=== PATIENT | male | born 1950 | race Caucasian/White ===

== ENCOUNTER 2022-01-26 11:14 | Day surgery (SDC) | payer MEDICARE, SELFPAY ==
--- NOTE | 2022-01-26 | PATH_ITS ---
[facility] Accession Number: [id number] . 01 Material submitted: . colon - TRANSVERSE COLON . 01 Diagnosis: Transverse Colon Polyp, Biopsy: Tubular adenoma. [facility] 02/01/2022 1548 Local . 01 Electronically signed: . Eboni Rivas MD, Pathologist NPI- [id number] . 01 Gross description: . TRANSVERSE COLON: Received in formalin are 2 fragment(s) of garrett, soft tissue measuring 0.3 x 0.2 x 0.1 cm to 0.2 x 0.2 x 0.1 cm submitted entirely in 1 cassette(s) /CPE 01/28/2022 0725 Local . 01 Pathologist provided ICD-10: D12.3 . 01 CPT . 809987 Specimen Comment: A courtesy copy of this report has been sent to [phone] Performed at: 01 [facility] [address] [place] [address], [place], [place] [id number] MD Mil Posada MD Phone: [phone]
[2022-01-26 11:54] VITALS: BP 141/94; PULSE 73; RESP 16; TEMP 36.9; O2SAT 97; BMI 24.3
--- NOTE | 2022-01-26 11:59 | P.HP_ITS ---
History of Present Illness History of Present Illness Date Patient Seen: 01/26/22 Time Patient Seen: 11:59 Chief complaint: Colonoscopy Narrative: The patient presents for colorectal screening after a positive fit test. He has a personal history of colonic polyps and family history significant for colon cancer his mother. On further history denies any recent gastrointestinal symptoms with the exception of hemorrhoid disease. No nausea, vomiting, abdominal pain, loss of appetite, unexplained weight loss, change in bowel habits, diarrhea, constipation, profuse rectal bleeding. Meds Home Medications and Allergies Home Medications Medication Instructions Recorded Confirmed Type No Known Home Medications 01/26/22 01/26/22 History Allergies Allergy/AdvReac Type Severity Reaction Status Date / Time No Known Drug Allergies Allergy Verified 01/26/22 11:51 Exam Narrative Exam Narrative: General adult male alert oriented no acute distress Chest nonlabored respirations Abdomen soft nontender nondistended Assessment & Plan Assessment and plan (1) Positive FIT (fecal immunochemical test): Status: Acute Assessment & Plan narrative: Patient requires a diagnostic colonoscopy following a positive FIT. Technical details were discussed. Risks, benefits, alternatives explained. Risks incl uding but not limited to myocardial infarction, aspiration, bleeding, pain, missed lesion, incomplete examination, need for further radiographic studies, colonic perforation, and need for major abdominal surgery were discussed. All questions were answered to their satisfaction, and they are in agreement with this plan. Time Spent With Patient Critical Care time: I spent a total of [] minutes of critical care time on this patient's care today; this time is exclusive of procedural time.
--- NOTE | 2022-01-26 12:01 | PM.OP.COLON ---
Operative Date/Time/Diagnoses Date of procedure: 01/26/22 Time of procedure: 12:01 Pre-op diagnosis: Positive fit Post-op diagnosis: same Procedure & Clinicians Study performed: Colonoscopy and polypectomy Same procedure as scheduled: Yes Indications: Family history of colon cancer Positive fit Surgeon: Jesse Song Procedure Notes Procedure in detail: The history and physical was performed/updated and the patient is ASA class is 2. The procedure was discussed in detail with the patient. Potential risks complications including infection, bleeding, missed diagnosis, perforation, need for surgery, and were explained. Their questions were answered and informed consent was obtained. Patient was brought to the procedure room and placed standard monitoring equipment. The patient's vital signs were monitored continuously throughout the entire procedure. Prior to starting time-out was performed. The patient was placed in the left lateral recumbent position. Procedural sedation was administered by anesthesia. Examination began with a thorough inspection of the perianal area there was no evidence of fissures, fistulae, external hemorrhoids or cutaneous malignancy. The colonoscopy scope was then placed into the anal canal and was advanced to the cecum, which was identified by the ileocecal valve, the appendiceal orifice and the confluence of the taenia. The scope was then slowly withdrawn examining colon thoroughly in all directions, irrigating it of any residual stool. FINDINGS 1. Transverse colon. Two 5 mm polyps removed with cold snare and biopsy forceps 2 sigmoid colon-extensive diverticulosis 3. Internal hemorrhoids The patient tolerated the procedure well. They will be discharged once criteria are met. The prep was of good/excellent quality. The withdrawl time was 13 minutes. Specimen(s): other (Transverse colon polyps) Complications: none Impression: Colonic polyps Post-procedure Recommendations: Colonoscopy in 5 years and Will call with biopsy results Disposition: same day surgery
[2022-01-26 12:18] LABS: COVID19 -Nasal RAPID Negative (Negative)
[2022-01-26 12:56] VITALS: BP 114/74; PULSE 61; RESP 16; TEMP 36.3; O2SAT 99
[2022-01-26 13:01] VITALS: BP 100/64; PULSE 68; RESP 15; O2SAT 99
[2022-01-26 13:07] VITALS: BP 118/83; PULSE 63; RESP 13; O2SAT 100
[2022-01-26 13:12] VITALS: BP 125/80; PULSE 63; RESP 16; O2SAT 99
[2022-01-26 13:18] VITALS: BP 140/83; PULSE 63; RESP 15; TEMP 36.5; O2SAT 99
== END 2022-01-26 13:27 | disposition home or self-care (01) ==
PROVIDERS: PCP Nurse Practitioner Family; Referring Provider Surgery; Visit Provider Surgery
PROC: 0DJD8ZZ Inspection of Lower Intestinal Tract, Via Natural or Artificial Opening Endoscopic (ICD-10-PCS; CPT 45378; principal; 2022-01-26 12:15)
DX: R19.5 Other fecal abnormalities (principal); Z20.822 Contact with and (suspected) exposure to COVID-19; K57.30 Diverticulosis of large intestine without perforation or abscess without bleeding; K64.8 Other hemorrhoids; D12.3 Benign neoplasm of transverse colon
CPT/HCPCS: 45385; 45380; 87635; J3010

== ENCOUNTER → 2022-04-16 08:37 | Outpatient (CLI) | payer MEDICARE, SELFPAY ==
--- NOTE | 2022-04-16 | DI.NM.S_ITS ---
PROCEDURE: NM BONE SCAN WHOLE BODY RADIOPHARMACEUTICAL: 21.6 mCi Tc-99m MDP IV. INDICATIONS: Malignant neoplasm of prostate TECHNIQUE: Delayed whole-body scintigrams were obtained approximately 3-4 hours after intravenous injection of radiotracer. Anterior and posterior views were acquired from vertex to feet. Additional left and right oblique views of the pelvis were obtained. COMPARISON: [facility], CT, CT CHEST ABD PEL W CON, 04/16/2022, 9:56. FINDINGS: Normal expected radiotracer is seen in the urinary system and bladder. The bladder is not fully voided, limiting evaluation of pelvic structures. Radiotracer uptake is seen in the lower face, favored to represent dental disease, correlate clinically. Radiotracer focal uptake is also seen around the cervical spine, possibly degenerative, given lack of suspicious uptake in the other parts of the axial and appendicular skeleton. Slight dextroconvex spinal curvature at the thoracolumbar junction. Left greater than right knee joint degenerative changes. Bilateral shoulder and sternoclavicular degenerative changes. IMPRESSION: No definite metastatic disease. Indeterminate focal uptake around the cervical spine may be degenerative, given lack of suspicious uptake elsewhere. Attention on follow-up imaging. Uptake in the lower face may be due to dental disease, consider clinical correlation. Dictated by: Alvino Moon M.D. on 04/16/2022 at 14:17 Approved by: Alvino Moon M.D. on 04/16/2022 at 14:20
--- NOTE | 2022-04-16 | DI.CT.S_ITS ---
PROCEDURE: CT CHEST ABD PEL W CON INDICATIONS: Malignant neoplasm of prostate TECHNIQUE: After the administration of oral and intravenous contrast, axial sections acquired from the supraclavicular neck to the pubic symphysis. Coronal and sagittal reformats were performed. For radiation dose reduction, the following was used: automated exposure control, adjustment of mA and/or kV according to patient size. COMPARISON: None. FINDINGS: Image quality: Could. CHEST: Lower Neck: No enlarged lymph nodes. Thyroid: Left thyroid nodule measuring 0.6 cm. Axillae: No enlarged lymph nodes. Chest Wall: Unremarkable. Lungs and Airways: Left upper lobe pulmonary nodule measuring 0.3 cm. This could represent a noncalcified granuloma. There are several calcified granulomas. No mass or significant pulmonary nodules. No acute airspace opacity. The airways are clear. Pleura: No pneumothorax or pleural effusions. Heart: Heart size is normal. No pericardial effusion. Thoracic Vessels: The aorta and pulmonary arteries demonstrate normal size. Mediastinum and Nancy: No enlarged lymph nodes. Esophagus: No wall thickening. No hiatal hernia. ABDOMEN: Liver: No focal lesion. Gallbladder: Unremarkable. Biliary ducts: Unremarkable. Pancreas: Unremarkable. Spleen: Unremarkable. Adrenal Glands: No nodule. Kidneys and Ureters: Right kidney extrarenal pelvis. No hydronephrosis. No solid renal mass. Stomach and Bowel: Stomach, small bowel loops, and colon are unremarkable. Diverticulosis. Normal appendix. Peritoneum: No abnormal intraperitoneal fluid. No free air. Ventral Wall: No hernia. Abdominal Nodes: No retroperitoneal or mesenteric adenopathy by size criteria. Vessels: Aorta and inferior vena cava are normal in size. Moderate calcified plaque. PELVIS: Pelvic Organs: Prostatomegaly. Median lobe hypertrophy. Bladder: No stone. Pelvic Nodes: No enlarged lymph nodes. Miscellaneous: No inguinal hernias are seen. Bones: No suspicious lesion. DDD at L5-S1. Please see separately dictated pending nuclear medicine bone scan. IMPRESSION: No metastatic disease identified. No adenopathy. Dictated by: Frank Ly M.D. on 04/16/2022 at 11:13 Approved by: Frank Ly M.D. on 04/16/2022 at 11:22
[2022-04-16 09:39] LABS: Alanine Aminotransferase 30 IU/L (<50); Alkaline Phosphatase 101 U/L (38-126); Aspartate Aminotransferase 29 IU/L (17-59); BUN Creatinine Ratio 18.1 (6-22); Bilirubin Total 0.6 mg/dL (0.2-1.3); Blood Urea Nitrogen 17 mg/dL (9-20); Calcium 8.9 mg/dL (8.4-10.2); Carbon Dioxide 28 mmol/L (22-32); Chloride 101 mmol/L (98-107); Estimated Glomerular Filt Rate > 60 mL/min (>60); Glucose 95 mg/dL (80-110); HEMOLYSIS < 15 (0-50); Sodium 139 mmol/L (137-145); Total Protein 8.3 g/dL (6.3-8.2)
[2022-04-16 16:28] LABS: Albumin 4.1 g/dL (3.5-5.0); Globulin 4.2 g/dL (1.7-4.1)
== END ==
PROVIDERS: PCP Nurse Practitioner Family; Referring Provider Urology; Visit Provider Urology
DX: C61 Malignant neoplasm of prostate (principal); E04.1 Nontoxic single thyroid nodule; M51.37 Other intervertebral disc degeneration, lumbosacral region; R91.1 Solitary pulmonary nodule; K57.30 Diverticulosis of large intestine without perforation or abscess without bleeding
CPT/HCPCS: 36415; 71260; 74177; 78306; 80053; A9503

== ENCOUNTER → 2022-10-08 10:25 | Outpatient (CLI) | payer MEDICARE, SELFPAY ==
[2022-10-08 12:16] LABS: Prostate Specific Antigen 0.633 ng/mL (0.10-4.00)
== END ==
PROVIDERS: PCP Nurse Practitioner Family; Referring Provider Urology; Visit Provider Urology
DX: C61 Malignant neoplasm of prostate (principal); R39.9 Unspecified symptoms and signs involving the genitourinary system; Z79.818 Long term (current) use of other agents affecting estrogen receptors and estrogen levels; Z98.890 Other specified postprocedural states
CPT/HCPCS: 36415; 51798; 81002; 84153; 99214

== ENCOUNTER 2023-05-09 11:36 | Emergency (ER) | payer MEDICARE, SELFPAY ==
[2023-05-09 12:24] VITALS: BP 162/94; PULSE 64; RESP 16; TEMP 36.9; O2SAT 98; BMI 25.7
[2023-05-09 12:52] LABS: Add Manual Diff / Slide Review NO; Basophils Absolute Auto 0 /uL (0-100); Basophils Percent Auto 0.4 % (0-2); Eosinophils Absolute Auto 100 /uL (0-450); Eosinophils Percent Auto 0.8 % (2-4); Hematocrit 42.7 % (41-53); Hemoglobin 14.5 g/dL (13.5-17.5); Lymphocytes Absolute Auto 600 /uL (1100-4500); Lymphocytes Percent Auto 7.7 % (25-40); Mean Corpuscular Hemoglobin 30.4 PG (26-34); Mean Corpuscular Volume 89.5 fL (80-100); Monocytes Absolute Auto 500 /uL (0-900); Monocytes Percent Auto 6.8 % (3-14); Neutrophils Absolute Auto 6100 /uL (1500-7000); Neutrophils Percent Auto 84.3 % (50-75); Platelet Count 169 X10^3/uL (150-400); Red Blood Cell Count 4.77 X10^6/uL (4.5-5.9); Red Cell Distribution Width 14.1 % (11.6-14.8); White Blood Cell Count 7.2 X10^3/uL (4.5-11.0)
[2023-05-09 13:05] LABS: Alanine Aminotransferase 27 IU/L (<50); Albumin 4.3 g/dL (3.5-5.0); Albumin Globulin Ratio 1.1 (1.0-2.8); Alkaline Phosphatase 105 U/L (38-126); Aspartate Aminotransferase 29 IU/L (17-59); BUN Creatinine Ratio 22.3 (6-22); Bilirubin Total 0.9 mg/dL (0.2-1.3); Blood Urea Nitrogen 21 mg/dL (9-20); Calcium 9.4 mg/dL (8.4-10.2); Carbon Dioxide 22 mmol/L (22-32); Chloride 108 mmol/L (98-107); Estimated Glomerular Filt Rate > 60 mL/min (>60); Globulin 3.8 g/dL (1.7-4.1); Glucose 108 mg/dL (80-110); HEMOLYSIS 34 (0-50); Lipase 147 U/L (23-300); Potassium 4.2 mmol/L (3.4-5.1); Sodium 141 mmol/L (137-145); Total Protein 8.1 g/dL (6.3-8.2)
[2023-05-09 14:29] LABS: Bacteria Urine None Seen; Culture Indicated Urine Cult Not Indicated; RBC Urine 10-30/HPF (0-5/HPF); Squamous Epithelial Cell Urine None Seen (0-5/HPF); Urine Volume 10mL (spun); WBC Urine None Seen (0-5/HPF)
--- NOTE | 2023-05-09 15:35 | ED_ITS ---
HPI - Abdominal Pain <Dimitris Morrissey PA-C - Last Filed: 05/10/23 19:44> General Chief Complaint: Abdominal Pain Stated Complaint: back and side pain Time Seen by Provider: 05/09/23 15:16 Source: patient Mode of arrival: Ambulatory History of Present Illness HPI narrative: 73-year-old male with past medical history prostate cancer presents to the ED with 1 day of left flank pain that wraps around to the abdomen. Patient denies history of kidney stones. Patient endorses nausea, dry heaves. Patient denies fever, chills, dysuria, urinary frequency, urinary urgency. No hematochezia, melena, constipation, diarrhea. Related Data Home Medications Medication Instructions Recorded Confirmed tamsulosin 0.4 mg capsule 0.4 mg PO DAILY 10/08/22 03/02/23 Previous Rx's Medication Instructions Recorded tamsulosin 0.4 mg capsule 0.8 mg (2 x 0.4 mg) PO DAILY #60 11/26/22 caps ondansetron 4 mg disintegrating 4 mg PO Q8H PRN nausea and 05/09/23 tablet vomiting #20 tabs tramadol 50 mg tablet 100 mg (2 x 50 mg) PO Q4-6H PRN 05/09/23 pain #30 tabs Allergies Allergy/AdvReac Type Severity Reaction Status Date / Time No Known Drug Allergies Allergy Verified 05/09/23 12:29 Review of Systems <Dimitris Morrissey PA-C - Last Filed: 05/10/23 19:44> Constitutional Constitutional: Denies chills, Denies fatigue, Denies fever(s), Denies frequent falls, Denies lethargy and Denies weakness Eyes Eyes: Denies change in vision, Denies eye discharge, Denies irritation and Denies loss of vision ENT Ears, Nose, Mouth, and Throat: Denies change in voice, Denies dizziness, Denies neck pain, Denies sore throat and Denies throat swelling Cardiovascular Cardiovascular: Denies chest pain, Denies irregular heart rhythm, Denies lightheadedness, Denies palpitations, Denies dyspnea, Denies dyspnea on exertion and Denies orthopnea Respiratory Respiratory: Denies cough, Denies dyspnea, Denies dyspnea on exertion and Denies wheezing Gastrointestinal Gastrointestinal: Reports abdominal pain, Denies change in bowel habits, Denies diarrhea, Reports nausea and Denies vomiting Genitourinary Comments: Left-sided flank pain Musculoskeletal Musculoskeletal: Denies neck pain and Denies numbness Integumentary/Breasts Skin/Breast: Denies pruritus, Denies erythema, Denies rash and Denies wounds Neurologic Neurologic: Denies behavioral changes, Denies confusion, Denies dizziness, Denies frequent falls, Denies loss of vision, Denies numbness and Denies weakness Psychiatric Psychiatric: Denies anxiety, Denies behavioral changes, Denies confusion, Denies depression, Denies homicidal ideation and Denies suicidal ideation Endocrine Endocrine: Denies fatigue, Denies flushing and Denies palpitations Hematologic/Lymphatic Hematologic/Lymphatic: Denies easy bruising Allergic/Immunologic Allergic/Immunologic: Denies urticaria, Denies throat swelling and Denies wheezing Patient History <Dimitris Morrissey PA-C - Last Filed: 05/10/23 19:44> Medical History History of radiation therapy Lower urinary tract symptoms Androgen deprivation therapy Prostate cancer Hx of malignant neoplasm of prostate Surgical History Hx of total knee replacement Hx of prostate biopsy Social History household members: spouse Smoking Status: Never smoker alcohol intake: current Smoking Status: Never smoker alcohol intake frequency: 0-2 drinks per day Substance Use Type: does not use Exam <Dimitris Morrissey PA-C - Last Filed: 05/10/23 19:44> Narrative Exam Narrative: Const General:?cooperative, healthy appearing and comfortable [facility] Head:?normal to inspection Ears:?hearing grossly normal bilaterally Nose:?external nose normal Face and sinus:?normal facial exam and sinuses nontender Mouth:?oral mucosae normal Throat:?posterior oropharynx normal Eyes General:?appearance normal, both eyes and all related structures Neck Neck:?normal visual inspection and no lymphadenopathy noted Resp Effort & Inspection:?normal respiratory effort Auscultation:?clear to auscultation bilaterally Cardio Rate:?regular rate Rhythm:?regular rhythm GI No CVA tenderness. Abdomen is soft, nondistended, nontender to palpation Neuro General:?patient alert, patient awake and patient oriented x3 Initial Vital Signs Initial Vital Signs: Vital Signs Temperature 98.4 F 05/09/23 12:24 Pulse Rate 64 05/09/23 12:24 Respiratory Rate 16 05/09/23 12:24 Blood Pressure 162/94 H 05/09/23 12:24 Pulse Oximetry 98 05/09/23 12:24 Oxygen Delivery Method Room Air 05/09/23 12:24 <Ada Dutta DO - Last Filed: 05/16/23 07:08> Initial Vital Signs Initial Vital Signs: Vital Signs Temperature 98.4 F 05/09/23 12:24 Pulse Rate 64 05/09/23 12:24 Respiratory Rate 16 05/09/23 12:24 Blood Pressure 162/94 H 05/09/23 12:24 Pulse Oximetry 98 05/09/23 12:24 Oxygen Delivery Method Room Air 05/09/23 12:24 Course <Dimitris Morrissey PA-C - Last Filed: 05/10/23 19:44> Orders Ordered: Discontinued Medications Ketorolac Tromethamine (Ketorolac 30 Mg/Ml Vial) 15 mg IV NOW ONE Stop: 05/09/23 15:39 Last Admin: 05/09/23 15:50 Dose: 15 mg Documented By: RAULITO Morphine Sulfate (Morphine 4 Mg/Ml Inj) 4 mg IV NOW ONE Stop: 05/09/23 16:06 Last Admin: 05/09/23 16:07 Dose: 4 mg Documented By: RAULITO Ondansetron HCl (Ondansetron 4 Mg/2 Ml Inj) 4 mg IV NOW PRN PRN Reason: Nausea And Vomiting Ondansetron HCl (Ondansetron 4 Mg Odt) 4 mg PO NOW PRN PRN Reason: Nausea And Vomiting Ondansetron HCl (Ondansetron 4 Mg/2 Ml Inj) 4 mg IV NOW ONE Stop: 05/09/23 15:40 Last Admin: 05/09/23 15:50 Dose: 4 mg Documented By: RAULITO Vital Signs Vital signs: Vital Signs - 8 hr 05/09/23 12:24 Temperature 98.4 F Pulse Rate 64 Respiratory Rate 16 Blood Pressure 162/94 H Pulse Oximetry 98 Oxygen Delivery Method Room Air <Ada Dutta DO - Last Filed: 05/16/23 07:08> Orders Ordered: Discontinued Medications Ketorolac Tromethamine (Ketorolac 30 Mg/Ml Vial) 15 mg IV NOW ONE Stop: 05/09/23 15:39 Last Admin: 05/09/23 15:50 Dose: 15 mg Documented By: RAULITO Morphine Sulfate (Morphine 4 Mg/Ml Inj) 4 mg IV NOW ONE Stop: 05/09/23 16:06 Last Admin: 05/09/23 16:07 Dose: 4 mg Documented By: RAULITO Ondansetron HCl (Ondansetron 4 Mg/2 Ml Inj) 4 mg IV NOW PRN PRN Reason: Nausea And Vomiting Ondansetron HCl (Ondansetron 4 Mg Odt) 4 mg PO NOW PRN PRN Reason: Nausea And Vomiting Ondansetron HCl (Ondansetron 4 Mg/2 Ml Inj) 4 mg IV NOW ONE Stop: 05/09/23 15:40 Last Admin: 05/09/23 15:50 Dose: 4 mg Documented By: RAULITO Vital Signs Vital signs: Vital Signs - 8 hr 05/09/23 12:24 Temperature 98.4 F Pulse Rate 64 Respiratory Rate 16 Blood Pressure 162/94 H Pulse Oximetry 98 Oxygen Delivery Method Room Air MDM - Abdominal Pain <Dimitris Morrissey PA-C - Last Filed: 05/10/23 19:44> Lab Data 05/09/23 12:40 05/09/23 12:40 Labs: Lab Results 05/09/23 05/09/23 Range/Units 12:40 13:25 WBC 7.2 (4.5-11.0) X10^3/uL RBC 4.77 (4.5-5.9) X10^6/uL Hgb 14.5 (13.5-17.5) g/dL Hct 42.7 (41-53) % MCV 89.5 (80-100) fL MCH 30.4 (26-34) PG MCHC 34.0 (30-36) % RDW 14.1 (11.6-14.8) % Plt Count 169 (150-400) X10^3/uL Neut % (Auto) 84.3 H (50-75) % Lymph % (Auto) 7.7 L (25-40) % [place] % (Auto) 6.8 (3-14) % Eos % (Auto) 0.8 L (2-4) % Baso % (Auto) 0.4 (0-2) % Neut # (Auto) 6100 (3881-3726) /uL Lymph # (Auto) 600 L (6209-5553) /uL [place] # (Auto) 500 (0-900) /uL Eos # (Auto) 100 (0-450) /uL Baso # (Auto) 0 (0-100) /uL Sodium 141 (137-145) mmol/L Potassium 4.2 (3.4-5.1) mmol/L Chloride 108 H (98-107) mmol/L Carbon Dioxide 22 (22-32) mmol/L BUN 21 H (9-20) mg/dL Creatinine 0.94 (0.66-1.25) mg/dL Estimated GFR > 60 (>60) mL/min BUN/Creatinine Ratio 22.3 H (6-22) Glucose 108 (80-110) mg/dL Calcium 9.4 (8.4-10.2) mg/dL Total Bilirubin 0.9 (0.2-1.3) mg/dL AST 29 (17-59) IU/L ALT 27 (<50) IU/L Alkaline Phosphatase 105 (38-126) U/L Total Protein 8.1 (6.3-8.2) g/dL Albumin 4.3 (3.5-5.0) g/dL Globulin 3.8 (1.7-4.1) g/dL Albumin/Globulin Ratio 1.1 (1.0-2.8) Lipase 147 (23-300) U/L Urine RBC 10-30/hpf H (0-5/HPF) Urine WBC None seen (0-5/HPF) Ur Squamous Epith Cells None seen (0-5/HPF) Urine Bacteria None seen (None) Ur Culture Indicated? Cult not indicated Vol Urine Centrifuged 10ml (spun) Point of care testing: Urine Dip Bedside Urine Glucose Negative Bedside Urine Bilirubin - Negative Bedside Urine Ketone - Negative Urine Specific [place] 1.025 Bedside Urine Occult Blood +++ Bedside Urine pH 5.5 Bedside Urine Protein - Negative Bedside Urine Urobilinogen - Negative Bedside Urine Nitrite - Negative Bedside Urine Leukocytes - Negative Esterase MDM Narrative Medical decision making narrative: 73-year-old male with past medical history prostate cancer presents to the ED with 1 day of left flank pain that wraps around to the abdomen. Concern for nephrolithiasis versus UTI versus pyelonephritis versus other intra-abdominal pathology versus other. Will obtain labs, UA, CT abdomen pelvis. Will give Toradol for pain. Toradol did not adequately control pain. Patient was given a dose of morphine with good resolution. Labs within normal limits. Urinalysis positive for hematuria, negative for infection. CT abdomen pelvis shows an obstructing 3 mm stone in the distal left ureter, resulting in hydronephrosis and delayed nephrogram. Given the size of the stone, it is reasonable for expectant and spontaneous stone passage. Discussed findings with patient. Prescribed tramadol and Zofran for symptom control. Patient to continue tamsulosin that he already takes daily. Recommend follow-up with Dr. Obregon who is his urologist. ED return precautions discussed with patient. Patient verbalized understanding. Medical records reviewed: Yes <Ada Dutta DO - Last Filed: 05/16/23 07:08> Lab Data Labs: Lab Results 05/09/23 05/09/23 Range/Units 12:40 13:25 WBC 7.2 (4.5-11.0) X10^3/uL RBC 4.77 (4.5-5.9) X10^6/uL Hgb 14.5 (13.5-17.5) g/dL Hct 42.7 (41-53) % MCV 89.5 (80-100) fL MCH 30.4 (26-34) PG MCHC 34.0 (30-36) % RDW 14.1 (11.6-14.8) % Plt Count 169 (150-400) X10^3/uL Neut % (Auto) 84.3 H (50-75) % Lymph % (Auto) 7.7 L (25-40) % [place] % (Auto) 6.8 (3-14) % Eos % (Auto) 0.8 L (2-4) % Baso % (Auto) 0.4 (0-2) % Neut # (Auto) 6100 (5654-9928) /uL Lymph # (Auto) 600 L (2486-6283) /uL [place] # (Auto) 500 (0-900) /uL Eos # (Auto) 100 (0-450) /uL Baso # (Auto) 0 (0-100) /uL Sodium 141 (137-145) mmol/L Potassium 4.2 (3.4-5.1) mmol/L Chloride 108 H (98-107) mmol/L Carbon Dioxide 22 (22-32) mmol/L BUN 21 H (9-20) mg/dL Creatinine 0.94 (0.66-1.25) mg/dL Estimated GFR > 60 (>60) mL/min BUN/Creatinine Ratio 22.3 H (6-22) Glucose 108 (80-110) mg/dL Calcium 9.4 (8.4-10.2) mg/dL Total Bilirubin 0.9 (0.2-1.3) mg/dL AST 29 (17-59) IU/L ALT 27 (<50) IU/L Alkaline Phosphatase 105 (38-126) U/L Total Protein 8.1 (6.3-8.2) g/dL Albumin 4.3 (3.5-5.0) g/dL Globulin 3.8 (1.7-4.1) g/dL Albumin/Globulin Ratio 1.1 (1.0-2.8) Lipase 147 (23-300) U/L Urine RBC 10-30/hpf H (0-5/HPF) Urine WBC None seen (0-5/HPF) Ur Squamous Epith Cells None seen (0-5/HPF) Urine Bacteria None seen (None) Ur Culture Indicated? Cult not indicated Vol Urine Centrifuged 10ml (spun) Point of care testing: Urine Dip Bedside Urine Glucose Negative Bedside Urine Bilirubin - Negative Bedside Urine Ketone - Negative Urine Specific [place] 1.025 Bedside Urine Occult Blood +++ Bedside Urine pH 5.5 Bedside Urine Protein - Negative Bedside Urine Urobilinogen - Negative Bedside Urine Nitrite - Negative Bedside Urine Leukocytes - Negative Esterase Discharge Plan Departure Patient Disposition: Home Clinical Impression: Kidney stone Instructions: DI for Kidney Stones Activity Restrictions/Additional Instructions: You were evaluated in the ED today for flank pain and abdominal pain. Your labs are normal. Your CT scan does show a 3 mm stone on the left side. A 3 mm stone has a very high probability of passing spontaneously. You are being prescribed medications for nausea and pain control. Please take those as prescribed. Please follow-up with your urologist Dr. Obregon as soon as possible. You were also being sent home with a urine strainer so you know when you pass the stone. Please take the stone to Dr. Obregon's office. Please return to the ED if your pain and nausea is not sufficiently controlled with the medications, or if you experience fever and chills. Please also continue to take the tamsulosin. Prescriptions: New tramadol 50 mg tablet 100 mg PO Q4-6H PRN (Reason: pain) Qty: 30 0RF ondansetron 4 mg tablet,disintegrating 4 mg PO Q8H PRN (Reason: nausea and vomiting) Qty: 20 0RF No Action tamsulosin 0.4 mg capsule 0.4 mg PO DAILY tamsulosin 0.4 mg capsule 0.8 mg PO DAILY Qty: 60 12RF Referrals: Miscellaneous,Doctor, MD [Primary Care Provider] - Stand Alone Forms: Patient Portal/API ED Sign-out <Ada Dutta DO - Last Filed: 05/16/23 07:08> Cosign ED Attending Meeta Attestation: I was immediately available in the department for consultation.
--- NOTE | 2023-05-09 15:38 | DI.CT.S_ITS ---
PROCEDURE: CT ABDOMEN PELVIS W CON INDICATIONS: L flank and abd pain TECHNIQUE: After the administration of intravenous contrast, axial sections acquired from the lung bases to the pubic symphysis. Coronal and sagittal reformats were performed. For radiation dose reduction, the following was used: automated exposure control, adjustment of mA and/or kV according to patient size. COMPARISON: None. FINDINGS: Image quality: Diagnostic. Lower Chest: No significant findings. ABDOMEN: Liver: No solid mass. Gallbladder: No radiopaque gallstones or wall thickening. Biliary ducts: No biliary dilation. Pancreas: No ductal dilation. Spleen: Size is within normal limits. Adrenal Glands: No adrenal nodules. Kidneys and Ureters: Obstructing 3 mm stone in the distal left ureter (series 2, image 73), resulting in moderate upstream hydronephrosis, hydroureter and delayed nephrogram. Stomach and Bowel: Normal colonic caliber, without significant wall thickening. Colonic diverticulosis without evidence of diverticulitis. Peritoneum: No abnormal intraperitoneal fluid. No free air. Ventral Wall: No significant ventral hernia. Abdominal Nodes: No retroperitoneal or mesenteric adenopathy by size criteria. Vessels: Aorta and inferior vena cava are normal in size. PELVIS: Pelvic Organs: Fiducial markers within the prostate. Bladder: Diffuse bladder wall thickening. Pelvic Nodes: No enlarged lymph nodes. Miscellaneous: No inguinal hernias are seen. Bones: No aggressive osseous abnormality. Degenerative disc disease, most prominent at L5-S1 with severe disc height loss. IMPRESSION: Obstructing 3 mm stone in the distal left ureter, resulting in hydronephrosis and delayed nephrogram. Diffuse bladder wall thickening. Cystitis not excluded. Dictated by: Jony Flaherty M.D. on 05/09/2023 at 16:17 Approved by: Jony Flaherty M.D. on 05/09/2023 at 16:20
[2023-05-09] MEDS: KETOROLAC 30 MG/ML VIAL 15 MG IV (15:50)
[2023-05-09] MEDS: ONDANSETRON 4 MG/2 ML INJ IV (15:50)
[2023-05-09] MEDS: MORPHINE 4 MG/ML INJ IV (16:07)
[2023-05-09 17:23] VITALS: BP 127/66; PULSE 63; RESP 18; O2SAT 96
== END 2023-05-09 17:30 | disposition home or self-care (01) ==
PROVIDERS: Emergency Medicine; Emergency Provider Student in an Organized Health Care Education/Training Program
DX: N20.0 Calculus of kidney (principal)
CPT/HCPCS: 36415; 74177; 80053; 81003; 81015; 83690; 85025; 93005; 93010; 96374; 96375; 99284; J1885; J2270; J2405

== ENCOUNTER → 2023-06-01 10:16 | Outpatient (CLI) | payer MEDICARE, SELFPAY ==
--- NOTE | 2023-06-01 10:18 | DI.RAD.S_ITS ---
PROCEDURE: XR KUB INDICATIONS: Follow-up left ureteral calculus TECHNIQUE: One view of the abdomen acquired. COMPARISON: [facility], CT, CT ABDOMEN PELVIS W CON, 05/09/2023, 15:49. FINDINGS: Surgical changes and devices: None. Bowel: Bowel gas pattern is nonobstructive. Significant colonic stool is present. Calcification near the right distal ureterovesicular junction is not definitively identified. Soft tissues: No suspicious abdominal calcifications. Visualized solid organ contours appear normal in size. Bones: No suspicious bony lesions. IMPRESSION: Distal left ureteral calcification near the ureterovesicular junction is not identified on current exam compared to prior CT. Constipation without obstruction. Dictated by: Suma Delaney M.D. on 06/01/2023 at 15:14 Approved by: Suma Delaney M.D. on 06/01/2023 at 15:15
== END ==
PROVIDERS: PCP Family Medicine; Referring Provider Urology; Visit Provider Urology
DX: C61 Malignant neoplasm of prostate (principal); N20.1 Calculus of ureter; K59.00 Constipation, unspecified; R39.9 Unspecified symptoms and signs involving the genitourinary system; Z87.442 Personal history of urinary calculi; Z79.818 Long term (current) use of other agents affecting estrogen receptors and estrogen levels; Z92.3 Personal history of irradiation
CPT/HCPCS: 74018; 96402; 99214; J9217